=== PATIENT | male | born 1985 | race Caucasian/White ===

== ENCOUNTER 2018-01-29 23:42 | Emergency (ER) | payer OTHER ==
[2018-01-30] MEDS: CEPHALEXIN 250 MG CAPSULE. PO (00:11)
[2018-01-30] MEDS: SMZ/TMP 800/160MG TABLET. PO (00:11)
== END 2018-01-30 00:12 | disposition home or self-care (01) ==
LOC: ER 23:42
DX: L03.114 Cellulitis of left upper limb (principal); S40.862A Insect bite (nonvenomous) of left upper arm, initial encounter; W57.XXXA Bitten or stung by nonvenomous insect and other nonvenomous arthropods, initial encounter; Y93.89 Activity, other specified; Y99.8 Other external cause status; Y92.89 Other specified places as the place of occurrence of the external cause
CPT/HCPCS: 99283

== ENCOUNTER 2018-01-30 20:35 | Emergency (ER) | payer OTHER | END 2018-01-30 20:40 | disposition left against medical advice (07) | LOC: ER 20:40 | DX: T14.8XXA Other injury of unspecified body region, initial encounter (principal); Z53.21 Procedure and treatment not carried out due to patient leaving prior to being seen by health care provider; W57.XXXA Bitten or stung by nonvenomous insect and other nonvenomous arthropods, initial encounter; Y93.89 Activity, other specified; Y99.8 Other external cause status; Y92.89 Other specified places as the place of occurrence of the external cause ==

== ENCOUNTER 2019-11-09 15:25 | Emergency (ER) | payer SELFPAY ==
[~2019-11-09] VITALS: Ht 188 cm; Wt 97.7 kg
[~2019-11-09 15:25] MED LIST: CEPH-264 PO; HYDR-3164 PO; SULF1TAB24 PO
[2019-11-09] MEDS: ONDANSETRON PF 4 MG/2 ML VIAL. IV ONE (15:52)
[2019-11-09] MEDS: IV NORMAL SALINE 1000ML BAG 1,000 ML IV ONE (15:53)
[2019-11-09 15:55] VITALS: BP 133/74
[2019-11-09 15:55] LABS: BASO % 0 % (0-3); EOS # 0.1 x10^3/uL (0.0-0.7); EOS % 1 % (0-3); HEMATOCRIT 49.3 % (39.0-53.0); HEMOGLOBIN 16.9 g/dL (13.0-17.5); LYMPH # 2.5 x10^3/uL (1.0-4.8); LYMPH % 22 % (24-48); MEAN CORPUSCULAR HEMOGLOBIN 31 pg (25-35); MEAN CORPUSCULAR HGB CONC 34 g/dL (31-37); MEAN CORPUSCULAR VOLUME 90 fL (79-100); MONO # 0.8 x10^3/uL (0.0-1.1); MONO % 7 % (0-9); NEUT # 8.1 x10^3/uL (1.8-7.7); NEUT % 70 % (31-73); PLATELET COUNT 328 x10^3/uL (140-400); RED CELL DISTRIBUTION WIDTH 13.1 % (11.5-14.5); WHITE BLOOD COUNT 11.7 x10^3/uL (4.0-11.0)
[2019-11-09 16:03] LABS: CALCIUM 9.7 mg/dL (8.5-10.1); CREATININE 1.2 mg/dL (0.7-1.3); GFR 68.9
[2019-11-09 16:10] LABS: ALBUMIN 4.3 g/dL (3.4-5.0); DIRECT BILIRUBIN 0.1 mg/dL (0.0-0.2); TOTAL BILIRUBIN 0.6 mg/dL (0.2-1.0); TOTAL PROTEIN 7.7 g/dL (6.4-8.2)
--- NOTE | 2019-11-09 16:16 | PHYS DOC ---
Past Medical History Past Medical History: No Pertinent History Past Surgical History: No Surgical History Smoking Status: Current Every Day Smoker Alcohol Use: Occasionally Drug Use: None Social History Narrative: OXYCONTIN Adult General Chief Complaint Chief Complaint: NAUSEA/VOMITING/DIARRHA HPI HPI 33-year-old male presenting with nausea and vomiting that started today about a few hours ago. He denies any pain. His vomitus is nonbilious and nonbloody. location gi tract. duration intermittent. no alleviating factors. ROS neg for cp, soa, fevers. Negative for vision changes. All other ROS is negative unless otherwise noted. ED course: 33-year-old male presenting the emergency department today with nausea and vomiting over the past few hours. He denies any abdominal pain. Vital signs unremarkable on arrival. Patient given IV fluids. Patient left AMA prior to workup. Emergency room staff explained to the patient his risk of and disability prior to leaving. He demonstrated medical decision-making capacity. He is to return for any worsening symptoms. Review of Systems Review of Systems All other review of systems is negative unless otherwise noted in history of present illness. Current Medications Current Medications Current Medications Medications (Trade) Dose Ordered Sig/Abel Start Time Stop Time Status Last Admin Dose Admin Info (CONTRAST GIVEN -- Rx MONITORING) 1 each PRN DAILY PRN 11/09/19 16:30 11/09/19 16:47 DC Iohexol (Omnipaque 300 Mg/ml) 75 ml 1X ONCE 11/09/19 16:30 11/09/19 16:31 DC Metoclopramide HCl (Reglan Vial) 10 mg 1X ONCE 11/09/19 16:30 11/09/19 16:31 DC Ondansetron HCl (Zofran) 4 mg 1X ONCE 11/09/19 15:45 11/09/19 15:47 DC 11/09/19 15:52 4 MG Sodium Chloride 1,000 ml @ 1,000 mls/hr Q1H ONCE 11/09/19 15:45 11/09/19 16:44 DC 11/09/19 15:53 1,000 MLS/HR Allergies Allergies Allergies Coded Allergies Type Severity Reaction Last Updated Verified No Known Drug Allergies 05/08/15 No Physical Exam Physical Exam SEE ABOVE. Constitutional: Well developed, well nourished, no acute distress, non-toxic appearance. [] HENT: Normocephalic, atraumatic, bilateral external ears normal, oropharynx moist, no oral exudates, nose normal. [] Eyes: PERRLA, EOMI, conjunctiva normal, no discharge. [] Neck: Normal range of motion, no tenderness, supple, no stridor. [] Cardiovascular:Heart rate regular rhythm, no murmur [] Lungs & Thorax: Bilateral breath sounds clear to auscultation [] Abdomen: Bowel sounds normal, soft, no tenderness, no masses, no pulsatile masses. No rebound tenderness or guarding. Skin: Warm, dry, no erythema, no rash. [] Back: No tenderness, no CVA tenderness. [] Extremities: No tenderness, no cyanosis, no clubbing, ROM intact, no edema. [] Neurologic: Alert and oriented X 3, normal motor function, normal sensory function, no focal deficits noted. [] Psychologic: Affect normal, judgement normal, mood normal. [] Current Patient Data Vital Signs Vital Signs Date Time Temp Pulse Resp B/P (MAP) Pulse Ox O2 Delivery O2 Flow Rate FiO2 11/09/19 15:55 98.2 83 24 133/74 (93) 99 Room Air 98.2 Lab Values Laboratory Tests Test 11/09/19 15:45 White Blood Count 11.7 x10^3/uL (4.0-11.0) H Red Blood Count 5.50 x10^6/uL (4.30-5.70) Hemoglobin 16.9 g/dL (13.0-17.5) Hematocrit 49.3 % (39.0-53.0) Mean Corpuscular Volume 90 fL (79-100) Mean Corpuscular Hemoglobin 31 pg (25-35) Mean Corpuscular Hemoglobin Concent 34 g/dL (31-37) Red Cell Distribution Width 13.1 % (11.5-14.5) Platelet Count 328 x10^3/uL (140-400) Neutrophils (%) (Auto) 70 % (31-73) Lymphocytes (%) (Auto) 22 % (24-48) L Monocytes (%) (Auto) 7 % (0-9) Eosinophils (%) (Auto) 1 % (0-3) Basophils (%) (Auto) 0 % (0-3) Neutrophils # (Auto) 8.1 x10^3/uL (1.8-7.7) H Lymphocytes # (Auto) 2.5 x10^3/uL (1.0-4.8) Monocytes # (Auto) 0.8 x10^3/uL (0.0-1.1) Eosinophils # (Auto) 0.1 x10^3/uL (0.0-0.7) Basophils # (Auto) 0.0 x10^3/uL (0.0-0.2) Sodium Level 143 mmol/L (136-145) Potassium Level 4.0 mmol/L (3.5-5.1) Chloride Level 103 mmol/L (98-107) Carbon Dioxide Level 24 mmol/L (21-32) Anion Gap 16 (6-14) H Blood Urea Nitrogen 15 mg/dL (8-26) Creatinine 1.2 mg/dL (0.7-1.3) Estimated GFR (Cockcroft-Gault) 68.9 Glucose Level 134 mg/dL (70-99) H Calcium Level 9.7 mg/dL (8.5-10.1) Total Bilirubin 0.6 mg/dL (0.2-1.0) Direct Bilirubin 0.1 mg/dL (0.0-0.2) Aspartate Amino Transferase (AST) 21 U/L (15-37) Alanine Aminotransferase (ALT) 34 U/L (16-63) Alkaline Phosphatase 62 U/L (46-116) Total Protein 7.7 g/dL (6.4-8.2) Albumin 4.3 g/dL (3.4-5.0) Lipase 167 U/L (73-393) Laboratory Tests 11/09/19 15:45 Laboratory Tests 11/09/19 15:45 EKG EKG [] Radiology/Procedures Radiology/Procedures [] Course & Med Decision Making Course & Med Decision Making Pertinent Labs and Imaging studies reviewed. (See chart for details) [] Dragon Disclaimer Dragon Disclaimer This electronic medical record was generated, in whole or in part, using a voice recognition dictation system. Departure Departure Impression: Primary Impression: Nausea and vomiting Disposition: AGAINST MEDICAL ADVICE Condition: GUARDED Referrals: NO PCP (PCP) JOSE CARLOS LAMB MD Nov 09, 2019 16:16
[2019-11-09] MEDS ORDERED: CONTRAST GIVEN. MC PRN (16:30)
[2019-11-09] MEDS ORDERED: METOCLOPRAMIDE HCL 10 MG/2 ML VIAL. IVP ONE (16:30)
[2019-11-09] MEDS ORDERED: IOHEXOL 300 MG/ML 100ML VIAL. IV ONE (16:30)
[2019-11-10] MEDS ORDERED: ONDA4TAB12 PO (12:25)
== END 2019-11-09 16:47 | disposition left against medical advice (07) ==
LOC: ER 15:25
DX: R11.2 Nausea with vomiting, unspecified (principal); F17.200 Nicotine dependence, unspecified, uncomplicated
CPT/HCPCS: 36415; 80048; 80076; 83690; 85025; 96361; 96374; 99283; J2405; J7030

== ENCOUNTER 2019-11-09 21:38 | Observation (INO) | payer SELFPAY ==
[~2019-11-09] VITALS: Ht 188 cm; Wt 94.1 kg
--- NOTE | 2019-11-09 22:31 | PHYS DOC ---
Past Medical History Past Medical History: No Pertinent History Past Surgical History: No Surgical History Smoking Status: Current Every Day Smoker Alcohol Use: Occasionally Drug Use: None Adult General Chief Complaint Chief Complaint: ANXIETY/PANIC ATTACK HPI HPI 33-year-old male presents to the emergency room with complaints of nausea vomiting started today. He denies any precipitating factors. He does have some abdominal discomfort and cramping. His vomit is nonbilious and nonbloody. He denies any fever. Does complain of some diarrhea. Nothing makes his symptoms worse, nothing makes his symptoms better. Patient was seen in the emergency department today and left AGAINST MEDICAL ADVICE because he became anxious. Laboratory studies were done in the emergency department today white blood cell count 11.7, hemoglobin 16.9 platelets 328, metabolic profile unremarkable. No imaging was performed. Review of Systems Review of Systems Constitutional: Denies fever or chills [] Respiratory: Denies cough or shortness of breath [] Cardiovascular: No additional information not addressed in HPI [] GI: + abdominal pain, nausea, vomiting, diarrhea [] Musculoskeletal: Denies back pain or joint pain [] Neurologic: Denies headache, focal weakness or sensory changes [] All other systems were reviewed and found to be within normal limits, except as documented in this note. Current Medications Current Medications Current Medications Medications (Trade) Dose Ordered Sig/Abel Start Time Stop Time Status Last Admin Dose Admin Dicyclomine HCl (Bentyl) 20 mg 1X ONCE 11/09/19 23:00 11/09/19 23:01 DC 11/09/19 23:09 20 MG Ondansetron HCl (Zofran) 4 mg PRN Q8HRS PRN 11/10/19 00:00 11/10/19 23:59 Sodium Chloride 1,000 ml @ 100 mls/hr Q10H 11/10/19 00:00 11/10/19 00:01 DC Allergies Allergies Allergies Coded Allergies Type Severity Reaction Last Updated Verified No Known Drug Allergies 05/08/15 No Physical Exam Physical Exam Constitutional: Well developed, well nourished, no acute distress, non-toxic appearance. [] HENT: Normocephalic, atraumatic, bilateral external ears normal, oropharynx moist, no oral exudates, nose normal. [] Eyes: PERRLA, EOMI, conjunctiva normal, no discharge. [] Cardiovascular:Heart rate regular rhythm, no murmur [] Lungs & Thorax: Bilateral breath sounds clear to auscultation [] Abdomen: Bowel sounds normal, soft, generalized tenderness, no masses, no pulsatile masses. [] Skin: Warm, dry, no erythema, no rash. [] Extremities: No tenderness, no edema. [] Neurologic: Alert and oriented X 3, no focal deficits noted. [] Psychologic: Affect normal, judgement normal, mood normal. [] Current Patient Data Vital Signs Vital Signs Date Time Temp Pulse Resp B/P (MAP) Pulse Ox O2 Delivery O2 Flow Rate FiO2 11/09/19 23:46 80 20 140/82 (101) 100 Room Air 11/09/19 23:16 98.6 98.6 EKG EKG [] Radiology/Procedures Radiology/Procedures KUB negative for acute process[] Course & Med Decision Making Course & Med Decision Making Pertinent Labs and Imaging studies reviewed. (See chart for details) []33-year-old male presents to the emergency room with complaints of nausea vomiting started today. He denies any precipitating factors. He does have some abdominal discomfort and cramping. His vomit is nonbilious and nonbloody. He denies any fever. Does complain of some diarrhea. Nothing makes his symptoms worse, nothing makes his symptoms better. Patient was seen in the emergency department today and left AGAINST MEDICAL ADVICE because he became anxious. Laboratory studies were done in the emergency department today white blood cell count 11.7, hemoglobin 16.9 platelets 328, metabolic profile unremarkable. No imaging was performed. Patient labs reviewed from earlier today KUB ngative Despite antinausea medications and bentyl, patient with continued vomiting - unable to tolerate liquids Plan admit Dragon Disclaimer Dragon Disclaimer This electronic medical record was generated, in whole or in part, using a voice recognition dictation system. Departure Departure Impression: Primary Impression: Intractable nausea and vomiting Additional Impression: Acute anxiety Disposition: ADMITTED INPATIENT Admitting Physician: OMEGA Condition: STABLE Referrals: NO PCP (PCP) Problem Qualifiers KHADRA PEDRAZA MD Nov 09, 2019 22:31
[2019-11-09] MEDS ORDERED: DICYCLOMINE 20 MG/2 ML VIAL. IM ONE (23:00)
[2019-11-09] MEDS ORDERED: ONDANSETRON PF 4 MG/2 ML VIAL. IVP ONE ×2 (23:00→23:45)
[2019-11-10] MEDS ORDERED: IV NORMAL SALINE 1000ML BAG 1,000 ML IV SCH
[2019-11-10] MEDS ORDERED: ONDANSETRON PF 4 MG/2 ML VIAL. IV PRN
--- NOTE | 2019-11-10 00:24 | RAD ---
KUB INDICATION: Intractable nausea and vomiting. COMPARISON: None. FINDINGS: Nonobstructive bowel gas pattern. No free air. Limited view of the lower chest demonstrates no acute abnormality. No acute osseous abnormality. IMPRESSION: Nonobstructive bowel gas pattern. Electronically signed by: Gigi Dye MD (11/10/2019 12:21 AM) [id number]
[2019-11-10 00:25] VITALS: BP 146/91
--- NOTE | 2019-11-10 00:28 | NUR ---
The patient, JENIFFER MENDEZ, 33 y/o, M admitted by HENRY DOW III, DO, was given written information regarding hospital policies, unit procedures and contact persons. Valuables were checked and left with him.
[2019-11-10 03:00] VITALS: BP 134/90
[2019-11-10 07:00] VITALS: BP 134/71
[2019-11-10] MEDS ORDERED: FLU VAX QS 2019-20 (36MOS+)/PF 0.5 ML SYRINGE. VAX IM ONE (09:00)
--- NOTE | 2019-11-10 09:27 | NUR ---
SW following. Discussed with RN, pt confided to night RN that he had been taking street oxycontin and has been withdrawing for some time as he has not been wanting to take it anymore. RN does not think PAT team needs to be called at this time. Discharge planners Jaky will follow up if need be.
[2019-11-10 11:00] VITALS: BP 130/78
[2019-11-10] MEDS ORDERED: ONDA4TAB12 PO (12:25)
--- NOTE | 2019-11-10 13:21 | NUR ---
Discharge Note: JENIFFER MENDEZ [facility] Discharge instructions and discharge home medications reviewed with Patient and a copy given. All questions have been answered and understanding verbalized. The following instructions and handouts were given: discharge instructions, new prescriptions, education and follow up recommendations. Discontinued lines and drains: Peripheral IV discontinued intact. Patient discharged to Home or Self Care with Self via Ambulated off unit by RN.
--- NOTE | 2019-11-10 16:01 | PDOC1 ---
History and Physical Date of Admission Date of Admission 11/10/2019 Identification/Chief Complaint Chief Complaint I was nauseous and vomiting Source Source: Patient History of Present Illness History of Present Illness Patient is a 33-year-old gentleman who was admitted through the emergency department with intractable nausea and vomiting. Apparently the patient is a habitual marijuana user and he had smoked the night previous to when his symptoms started. 24 hours prior to my visit with him he had eaten some Holley Asada for breakfast and his symptoms started shortly thereafter. Seems like he started having nausea and subsequently intractable vomiting. He came to the emergency department for evaluation, and his white blood cell count was mildly elevated nevertheless his differential was normal chemistry was normal as well with a mild elevation of the glucose which may have been reactive. The patient at the time of my evaluation was in no acute distress he was able to eat and drink and he was in no acute distress. No fever no chills no recent sick contacts and the meal was prepared by him this was not a restaurant related issue either. The patient at the time of my note denies any abdominal pain no vomiting no diarrhea no chest pain palpitations or shortness of breath. We discussed his marijuana use and the propensity to intractable nausea and vomiting that he has most likely as a consequence of use of marijuana on top of his probably food poisoning. Past Medical History Past Medical History Negative medical history Current Problem List Problem List Problems Medical Problems: (1) Acute anxiety Status: Acute (2) Intractable nausea and vomiting Status: Acute Current Medications Current Medications Current Medications Medications (Trade) Dose Ordered Sig/Abel Start Time Stop Time Status Last Admin Dose Admin Dicyclomine HCl (Bentyl) 20 mg 1X ONCE 11/09/19 23:00 11/09/19 23:01 DC 11/09/19 23:09 20 MG Influenza Virus Vaccine Quadrival (Afluria Quad 2019- (3yr Up) Syringe) 0.5 ml ONCE ONCE 11/10/19 09:00 11/10/19 09:01 DC 11/10/19 11:22 0.5 ML Ondansetron HCl (Zofran) 4 mg PRN Q8HRS PRN 11/10/19 00:00 11/10/19 13:26 DC 11/10/19 08:14 4 MG Sodium Chloride 1,000 ml @ 100 mls/hr Q10H 11/10/19 00:00 11/10/19 00:01 DC 11/10/19 00:36 100 MLS/HR Allergies Allergies Allergies Coded Allergies Type Severity Reaction Last Updated Verified No Known Drug Allergies 05/08/15 No ROS Review of System CONSTITUTIONAL: No fever or chills EYES: No recent changes SKIN: No rash or itching CARDIOVASCULAR: No chest pain, syncope, palpitations, or edema RESPIRATORY: No SOB or cough GASTROINTESTINAL: No nausea, vomiting or abdominal pain NEUROLOGICAL: No headaches or weakness ENDOCRINE: No cold or heat intolerance GENITOURINARY: No urgency or frequency of urination MUSCULOSKELETAL: No back pain or joint pain LYMPHATICS: No enlarged lymph nodes PSYCHIATRIC: No anxiety or depression Physical Exam Physical Exam GEN.: No apparent distress. Alert and oriented. HEENT: Head is normocephalic, atraumatic NECK: Supple. LUNGS: Clear to auscultation. HEART: RRR, S1, S2 present. Peripheral pulses intact ABDOMEN: Soft, nontender. Positive bowel sounds. EXTREMITIES: Without any cyanosis. NEUROLOGIC: Normal speech, normal tone PSYCHIATRIC: Normal affect, normal mood. SKIN: No ulcerations Vitals Vitals Vital Signs Date Time Temp Pulse Resp B/P (MAP) Pulse Ox O2 Delivery O2 Flow Rate FiO2 11/10/19 11:00 98.6 85 17 130/78 (95) 95 Room Air 98.6 VTE Prophylaxis Ordered VTE Prophylaxis Devices: Yes VTE Pharmacological Prophylaxi: No Assessment/Plan Assessment/Plan Intractable nausea and vomiting Reactive leukocytosis most likely versus hemoconcentration Moderate dehydration Marijuana use Plan Food challenge If patient does well after his meal he may be discharged Drug cessation counseling has been done DVT prophylaxis with MATT Sharp MD Nov 10, 2019 16:01
--- NOTE | 2019-11-10 16:05 | PDOC3 ---
Discharge Summary Visit Information Date of Admission: Nov 10, 2019 Date of Discharge: Nov 10, 2019 Admitting Diagnosis Comment: Intractable nausea and vomiting Marijuana abuse Final Diagnosis Problems Medical Problems: (1) marijuana abuse Status: Acute (2) Intractable nausea and vomiting Status: Acute Brief Hospital Course Allergies Allergies Coded Allergies Type Severity Reaction Last Updated Verified No Known Drug Allergies 05/08/15 No Vital Signs Vital Signs Date Time Temp Pulse Resp B/P (MAP) Pulse Ox O2 Delivery O2 Flow Rate FiO2 11/10/19 11:00 98.6 85 17 130/78 (95) 95 Room Air 98.6 Brief Hospital Course Mr. Bullard was admitted for the above-mentioned nausea vomiting elevated leukocytosis and most likely food poisoning from Holley Asada that he had prepared at home for himself. The patient tolerated his diet well and did not present further emetic episodes. He was given a prescription for Zofran and the signs and symptoms of alarm and when to seek medical attention were discussed with the patient as well as extensive counseling regarding the noxious effect of marijuana on his health. Patient had nausea understanding of all the instructions and he was in good spirits to be dismissed home Physical exam Lungs clear to auscultation bilaterally with good inspiratory effort CVS S1-S2 regular rhythm no murmurs gallops or rubs Abdomen soft nontender no rebound or guarding elicited Discharge Information Condition at Discharge: Improved Follow Up: Weeks (With primary care) Disposition/Orders: D/C to Home Scheduled PRN Ondansetron (Ondansetron Odt) 4 Mg Tab.rapdis, 1 TAB PO PRN Q6-8HRS PRN for NAUSEA, #16 Prescribed by: MATT MATA MD on 11/10/19 1225 MATT MATA MD Nov 10, 2019 16:05
== END 2019-11-10 13:25 | disposition home or self-care (01) ==
LOC: ER 21:38 → 5 SOUTH 23:53 → ER 11-10 00:23
PROVIDERS: ADMIT Internal Medicine; ATTEND Internal Medicine
DX: R11.2 Nausea with vomiting, unspecified (principal); F17.210 Nicotine dependence, cigarettes, uncomplicated; F41.9 Anxiety disorder, unspecified; F12.10 Cannabis abuse, uncomplicated; Z87.891 Personal history of nicotine dependence; D72.828 Other elevated white blood cell count; E86.0 Dehydration; Z23 Encounter for immunization
CPT/HCPCS: 74018; 90471; 90686; 96374; 96375; 96376; 99285; G0378; J0500; J2405; J7030; G0379

== ENCOUNTER 2020-02-23 12:21 | Emergency (ER) | payer SELFPAY ==
[~2020-02-23] VITALS: Ht 188 cm; Wt 104.5 kg
[~2020-02-23 12:21] MED LIST changes: +ONDA4TAB12 PO
[2020-02-23 13:43] LABS: BILIRUBIN,URINE NEGATIVE (NEG); CLARITY,URINE CLEAR; COLOR,URINE YELLOW; NITRITE,URINE NEGATIVE (NEG); PROTEIN,URINE 30 mg/dL (NEG-TRACE)
[2020-02-23 13:44] LABS: BASO % 0 % (0-3); EOS % 0 % (0-3); HEMATOCRIT 44.3 % (39.0-53.0); HEMOGLOBIN 15.7 g/dL (13.0-17.5); LYMPH # 1.1 x10^3/uL (1.0-4.8); LYMPH % 10 % (24-48); MEAN CORPUSCULAR HEMOGLOBIN 32 pg (25-35); MEAN CORPUSCULAR HGB CONC 36 g/dL (31-37); MEAN CORPUSCULAR VOLUME 89 fL (79-100); MONO # 0.6 x10^3/uL (0.0-1.1); MONO % 5 % (0-9); NEUT # 9.7 x10^3/uL (1.8-7.7); NEUT % 84 % (31-73); PLATELET COUNT 311 x10^3/uL (140-400); RED BLOOD COUNT 4.96 x10^6/uL (4.30-5.70); RED CELL DISTRIBUTION WIDTH 12.9 % (11.5-14.5); WHITE BLOOD COUNT 11.6 x10^3/uL (4.0-11.0)
[2020-02-23 13:59] LABS: SQUAMOUS EPITHELIAL CELL,UR FEW /LPF
[2020-02-23 14:00] LABS: AMORPHOUS SEDIMENT,UR PRESENT /HPF; BACTERIA,URINE 0 /HPF (0-FEW)
[2020-02-23 14:11] LABS: CALCIUM 9.2 mg/dL (8.5-10.1); CREATININE 1.3 mg/dL (0.7-1.3); GFR 62.5; POTASSIUM 3.3 mmol/L (3.5-5.1)
[2020-02-23 14:16] LABS: ALBUMIN 4.2 g/dL (3.4-5.0); ALBUMIN/GLOBULIN RATIO 1.3 (1.0-1.7); TOTAL BILIRUBIN 0.8 mg/dL (0.2-1.0); TOTAL PROTEIN 7.4 g/dL (6.4-8.2)
[2020-02-23] MEDS ORDERED: IV NORMAL SALINE 1000ML BAG 1,000 ML IV ONE (14:45)
[2020-02-23] MEDS ORDERED: HALOPERIDOL LACTATE 5 MG/ML VIAL. IVP ONE (15:00)
--- NOTE | 2020-02-23 15:57 | PHYS DOC ---
Past Medical History Past Medical History: No Pertinent History Past Surgical History: No Surgical History Smoking Status: Current Every Day Smoker Additional Information: 0.25 PPD Alcohol Use: Occasionally Drug Use: None General Adult EDM: Chief Complaint: NAUSEA/VOMITING/DIARRHA HPI: HPI: Patient is a 34 year old male with a history of marijuana use who presents with epigastric abdominal pain and nausea with vomiting. This is been going on all day. He states the pain is severe and he cannot keep anything down. He is in distress. He denies any fever. He has not had any diarrhea or constipation. He denies any URI symptoms. Pain feels crampy and sharp. Review of Systems: Review of Systems: General: Denies fever, chills, sweats, fatigue Eyes: Denies drainage, blurred vision, eye redness HENT: Denies rhinorrhea, sore throat, earache Respiratory: Denies cough, shortness of breath, wheezing Cardiac: Denies edema, palpitations, chest pain GI: Reports nausea, vomiting, abdominal pain MSK: Denies neck pain[] Skin: Denies rash, jaundice Neuro: Denies headache, dizziness Psychiatric: Denies SI/HI Heart Score: Risk Factors: Risk Factors: DM, Current or recent (<one month) smoker, HTN, HLP, family history of CAD, obesity. Risk Scores: Score 0 - 3: 2.5% MACE over next 6 weeks - Discharge Home Score 4 - 6: 20.3% MACE over next 6 weeks - Admit for Clinical Observation Score 7 - 10: 72.7% MACE over next 6 weeks - Early Invasive Strategies Current Medications: Current Medications Medications (Trade) Dose Ordered Sig/Abel Start Time Stop Time Status Last Admin Dose Admin Haloperidol Lactate (Haldol Inj) 5 mg 1X ONCE 02/23/20 15:00 02/23/20 15:01 DC 02/23/20 15:02 5 MG Sodium Chloride 1,000 ml @ 1,000 mls/hr 1X ONCE 02/23/20 14:45 02/23/20 15:44 DC 02/23/20 14:45 1,000 MLS/HR Allergies: Allergies: Allergies Coded Allergies Type Severity Reaction Last Updated Verified No Known Drug Allergies 05/08/15 No Physical Exam: PE: General: Awake, alert, distressed, anxious. Well Nourished, well hydrated. Cooperative HEENT: Atraumatic, EOMI, PERRL, airway patent, moist oral mucosa Neck: Supple, trachea midline Respiratory: CTA bilaterally, normal effort, no wheezing/crackles CV: RRR, no murmur, cap refill <2 GI: Soft, nondistended, diffuse tenderness, no masses MSK: No obvious deformities Skin: Warm, dry, intact Neuro: A&O x3, speech NL, sensory and motor grossly intact, no focal deficits Psych: Normal affect, normal mood, not suicidal or homicidal Current Patient Data: Labs: Laboratory Tests Test 02/23/20 13:10 02/23/20 13:24 Urine Collection Type Unknown Urine Color Yellow Urine Clarity Clear Urine pH 8.0 (<5.0-8.0) Urine Specific Causey >=1.030 (1.000-1.030) Urine Protein 30 mg/dL (NEG-TRACE) Urine Glucose (UA) Negative mg/dL (NEG) Urine Ketones (Stick) >=80 mg/dL (NEG) Urine Blood Negative (NEG) Urine Nitrite Negative (NEG) Urine Bilirubin Negative (NEG) Urine Urobilinogen Dipstick 1.0 mg/dL (0.2 mg/dL) Urine Leukocyte Esterase Negative (NEG) Urine RBC 6-10 /HPF (0-2) Urine WBC 5-10 /HPF (0-4) Urine Squamous Epithelial Cells Few /LPF Urine Amorphous Sediment Present /HPF Urine Bacteria 0 /HPF (0-FEW) Urine Mucus Marked /LPF White Blood Count 11.6 x10^3/uL (4.0-11.0) H Red Blood Count 4.96 x10^6/uL (4.30-5.70) Hemoglobin 15.7 g/dL (13.0-17.5) Hematocrit 44.3 % (39.0-53.0) Mean Corpuscular Volume 89 fL (79-100) Mean Corpuscular Hemoglobin 32 pg (25-35) Mean Corpuscular Hemoglobin Concent 36 g/dL (31-37) Red Cell Distribution Width 12.9 % (11.5-14.5) Platelet Count 311 x10^3/uL (140-400) Neutrophils (%) (Auto) 84 % (31-73) H Lymphocytes (%) (Auto) 10 % (24-48) L Monocytes (%) (Auto) 5 % (0-9) Eosinophils (%) (Auto) 0 % (0-3) Basophils (%) (Auto) 0 % (0-3) Neutrophils # (Auto) 9.7 x10^3/uL (1.8-7.7) H Lymphocytes # (Auto) 1.1 x10^3/uL (1.0-4.8) Monocytes # (Auto) 0.6 x10^3/uL (0.0-1.1) Eosinophils # (Auto) 0.0 x10^3/uL (0.0-0.7) Basophils # (Auto) 0.0 x10^3/uL (0.0-0.2) Sodium Level 139 mmol/L (136-145) Potassium Level 3.3 mmol/L (3.5-5.1) L Chloride Level 103 mmol/L (98-107) Carbon Dioxide Level 21 mmol/L (21-32) Anion Gap 15 (6-14) H Blood Urea Nitrogen 13 mg/dL (8-26) Creatinine 1.3 mg/dL (0.7-1.3) Estimated GFR (Cockcroft-Gault) 62.5 BUN/Creatinine Ratio 10 (6-20) Glucose Level 151 mg/dL (70-99) H Calcium Level 9.2 mg/dL (8.5-10.1) Total Bilirubin 0.8 mg/dL (0.2-1.0) Aspartate Amino Transferase (AST) 15 U/L (15-37) Alanine Aminotransferase (ALT) 30 U/L (16-63) Alkaline Phosphatase 58 U/L (46-116) Total Protein 7.4 g/dL (6.4-8.2) Albumin 4.2 g/dL (3.4-5.0) Albumin/Globulin Ratio 1.3 (1.0-1.7) Lipase 86 U/L (73-393) Laboratory Tests 02/23/20 13:24 Laboratory Tests 02/23/20 13:24 Vital Signs: Vital Signs Date Time Temp Pulse Resp B/P (MAP) Pulse Ox O2 Delivery O2 Flow Rate FiO2 02/23/20 12:51 98.4 59 20 142/80 (100) 100 Room Air 98.4 EKG: EKG: [] Radiology/Procedures: Radiology/Procedures: [] Course & Med Decision Making: Course & Med Decision Making Pertinent Labs and Imaging studies reviewed. (See chart for details) Patient is a 34-year-old with a history cyclic vomiting or daily marijuana use and presents to the Emergency Room complaining of abdominal pain, nausea, vomiting. This is similar to episodes they have had in the past. Patient was given fluids and symptomatic treatment. BMP and UA were ordered. On reevaluation, patient is feeling much better after Haldol and would like to go home. Patient's test results and vitals while in the ED were fully reviewed and discussed with the patient. Patient is stable and at this time does not need admission to the hospital. We have discussed strict return precautions and the importance of following up with their Primary Care Physician. Patient stated understanding and was given an opportunity to ask any questions. Patient is in agreement with plan. Yaniraon Disclaimer: Alexandra Disclaimer: This electronic medical record was generated, in whole or in part, using a voice recognition dictation system. Departure Departure Impression: Primary Impression: Cyclic vomiting syndrome Disposition: HOME, SELF-CARE Condition: GOOD Referrals: NO PCP (PCP) Patient Instructions: Cyclic Vomiting Syndrome Justicifation of Admission Dx: Justifications for Admission: Justification of Admission Dx: No JAXON LEVY MD Feb 23, 2020 15:57
[2020-02-23 16:07] VITALS: BP 140/64
== END 2020-02-23 16:33 | disposition home or self-care (01) ==
LOC: ER 12:21
DX: R11.15 Cyclical vomiting syndrome unrelated to migraine (principal); R10.13 Epigastric pain; F17.200 Nicotine dependence, unspecified, uncomplicated
CPT/HCPCS: 36415; 80053; 81001; 83690; 85025; 96361; 96374; 99283; J1630; J7030

== ENCOUNTER 2020-04-17 14:15 | Emergency (ER) | payer SELFPAY ==
[~2020-04-17] VITALS: Ht 188 cm; Wt 95.0 kg
--- NOTE | 2020-04-17 14:37 | PHYS DOC ---
Past Medical History Past Medical History: No Pertinent History Past Surgical History: No Surgical History Smoking Status: Current Every Day Smoker Alcohol Use: Occasionally Drug Use: None General Adult EDM: Chief Complaint: ABDOMINAL PAIN HPI: HPI: Patient is a 34 year old male who presented to ER today for evaluation of nausea vomiting, abdominal pain since waking up this morning. Patient has history of cyclic vomiting syndrome, he continues to smoke marijuana. Patient denies any fever, no cough, no chest pain. Patient denies being exposed to anybody who tested positive for COVID-19. Patient has been evaluated here multiple times for the same problem. Review of Systems: Review of Systems: Constitutional: Denies fever or chills. [] Eyes: Denies change in visual acuity. [] HENT: Denies nasal congestion or sore throat. [] Respiratory: Denies cough or shortness of breath. [] Cardiovascular: Denies chest pain or edema. [] GI: Positive for nausea vomiting, abdominal pain. No diarrhea. : Denies dysuria. [] Musculoskeletal: Denies back pain or joint pain. [] Integument: Denies rash. [] Neurologic: Denies headache, focal weakness or sensory changes. [] Endocrine: Denies polyuria or polydipsia. [] Lymphatic: Denies swollen glands. [] Psychiatric: Denies depression or anxiety. [] Heart Score: Risk Factors: Risk Factors: DM, Current or recent (<one month) smoker, HTN, HLP, family history of CAD, obesity. Risk Scores: Score 0 - 3: 2.5% MACE over next 6 weeks - Discharge Home Score 4 - 6: 20.3% MACE over next 6 weeks - Admit for Clinical Observation Score 7 - 10: 72.7% MACE over next 6 weeks - Early Invasive Strategies Current Medications: Current Medications Medications (Trade) Dose Ordered Sig/Abel Start Time Stop Time Status Last Admin Dose Admin Sodium Chloride 1,000 ml @ 1,000 mls/hr 1X ONCE 04/17/20 14:45 04/17/20 15:44 Allergies: Allergies: Allergies Coded Allergies Type Severity Reaction Last Updated Verified No Known Drug Allergies 05/08/15 No Physical Exam: PE: Constitutional: Well developed, well nourished, no acute distress, non-toxic appearance. [] HENT: Normocephalic, atraumatic, bilateral external ears normal, oropharynx moist, no oral exudates, nose normal. [] Eyes: PERRLA, EOMI, conjunctiva normal, no discharge. [] Neck: Normal range of motion, no tenderness, supple, no stridor. [] Cardiovascular:Heart rate regular rhythm, no murmur [] Lungs & Thorax: Bilateral breath sounds clear to auscultation [] Abdomen: Bowel sounds normal, soft, there is diffuse tenderness to palpation, no masses, no pulsatile masses. Skin: Warm, dry, no erythema, no rash. [] Back: No tenderness, no CVA tenderness. [] Extremities: No tenderness, no cyanosis, no clubbing, ROM intact, no edema. [] Neurologic: Alert and oriented X 3, normal motor function, normal sensory function, no focal deficits noted. [] Psychologic: Affect normal, judgement normal, mood normal. [] Current Patient Data: Labs: Laboratory Tests Test 04/17/20 14:59 04/17/20 15:01 Urine Collection Type Unknown Urine Color Yellow Urine Clarity Clear Urine pH 8.5 Urine Specific [place] >=1.030 Urine Protein 30 mg/dL Urine Glucose (UA) Negative mg/dL Urine Ketones (Stick) >=80 mg/dL Urine Blood Negative Urine Nitrite Negative Urine Bilirubin Negative Urine Urobilinogen Dipstick 0.2 mg/dL Urine Leukocyte Esterase Negative Urine RBC 1-2 /HPF Urine WBC Rare /HPF Urine Squamous Epithelial Cells Few /LPF Urine Bacteria 0 /HPF Urine Mucus Marked /LPF Urine Opiates Screen Neg Urine Methadone Screen Neg Urine Barbiturates Neg Urine Phencyclidine Screen Neg Urine Amphetamine/Methamphetamine Neg Urine Benzodiazepines Screen Neg Urine Cocaine Screen Neg Urine Cannabinoids Screen Pos Urine Ethyl Alcohol Neg White Blood Count 15.6 x10^3/uL Red Blood Count 5.26 x10^6/uL Hemoglobin 16.2 g/dL Hematocrit 47.2 % Mean Corpuscular Volume 90 fL Mean Corpuscular Hemoglobin 31 pg Mean Corpuscular Hemoglobin Concent 34 g/dL Red Cell Distribution Width 13.3 % Platelet Count 296 x10^3/uL Neutrophils (%) (Auto) 89 % Lymphocytes (%) (Auto) 7 % Monocytes (%) (Auto) 4 % Eosinophils (%) (Auto) 0 % Basophils (%) (Auto) 0 % Neutrophils # (Auto) 13.8 x10^3/uL Lymphocytes # (Auto) 1.0 x10^3/uL Monocytes # (Auto) 0.6 x10^3/uL Eosinophils # (Auto) 0.0 x10^3/uL Basophils # (Auto) 0.1 x10^3/uL Segmented Neutrophils % 87 % Lymphocytes % 10 % Monocytes % 3 % Toxic Granulation Slight Platelet Estimate Adequate Sodium Level 138 mmol/L Potassium Level 3.5 mmol/L Chloride Level 101 mmol/L Carbon Dioxide Level 23 mmol/L Anion Gap 14 Blood Urea Nitrogen 11 mg/dL Creatinine 1.1 mg/dL Estimated GFR (Cockcroft-Gault) 75.7 BUN/Creatinine Ratio 10 Glucose Level 127 mg/dL Calcium Level 9.9 mg/dL Total Bilirubin 0.9 mg/dL Aspartate Amino Transf (AST/SGOT) 17 U/L Alanine Aminotransferase (ALT/SGPT) 34 U/L Alkaline Phosphatase 58 U/L Total Protein 7.6 g/dL Albumin 4.2 g/dL Albumin/Globulin Ratio 1.2 Lipase 56 U/L Current Medications Medications (Trade) Dose Ordered Sig/Abel Route PRN Reason Start Time Stop Time Status Last Admin Dose Admin Sodium Chloride 1,000 ml @ 1,000 mls/hr 1X ONCE IV 04/17/20 14:45 04/17/20 15:44 DC 04/17/20 15:04 Metoclopramide HCl (Reglan Vial) 10 mg 1X ONCE IVP 04/17/20 14:45 04/17/20 14:46 DC 04/17/20 15:04 Diphenhydramine HCl (Benadryl) 50 mg 1X ONCE IVP 04/17/20 14:45 04/17/20 14:46 DC 04/17/20 15:04 Sodium Chloride 1,000 ml @ 1,000 mls/hr 1X ONCE IV 04/17/20 15:30 04/17/20 16:29 DC 04/17/20 15:30 Iohexol (Omnipaque 300 Mg/ml) 75 ml 1X ONCE IV 04/17/20 16:15 04/17/20 16:16 DC Info (CONTRAST GIVEN -- Rx MONITORING) 1 each PRN DAILY PRN MC SEE COMMENTS 04/17/20 16:15 04/19/20 16:14 Ondansetron HCl (Zofran) 8 mg 1X ONCE IVP 04/17/20 16:45 9/1/20 16:46 DC 04/17/20 16:53 Haloperidol Lactate (Haldol Inj) 5 mg 1X ONCE IVP 04/17/20 16:45 04/17/20 16:46 DC 04/17/20 16:53 Ketorolac Tromethamine (Toradol 30mg Vial) 30 mg 1X ONCE IVP 04/17/20 17:30 04/17/20 17:33 DC 04/17/20 17:54 EKG: EKG: [] Radiology/Procedures: Radiology/Procedures: [][facility] [address] [place] [address] IMAGING REPORT Signed PATIENT: JADYN ESCOBEDO ACCOUNT: [id number] : 09/17/1948 LOCATION: ER AGE: 71 SEX: M EXAM STATUS: REG ER ORD. PHYSICIAN: CESAR DANIELS DO REASON: HAD A SYNCOPE OUTSIDE, FELL DOWN ON GROUND PROCEDURE: CT HEAD AND CERVICAL SPINE WO Exam: CT head and cervical spine INDICATION: Syncope outside, fell on ground TECHNIQUE: Sequential axial images through the head and cervical spine were obtained without the administration of IV contrast. Comparisons: 06/08/2019 FINDINGS: Head: No focal parenchymal lesion or hemorrhage is identified. There is no midline shift or sulcal effacement. Patchy hypodensity in the periventricular white matter. 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 No acute vascular territory infarction is identified. Esquivel-white distinction is preserved. The ventricular system is within normal limits without compression hydrocephalus. The basal cisterns are well maintained. The visualized portions of the paranasal sinuses and mastoid air cells are well-pneumatized. No acute fractures. Cervical spine: There is straightening of cervical spine which may positional. Anterior flowing bridging osteophytosis is noted throughout cervical spine. Vertebral body heights are well-maintained. Fracture to the cervical spine is not identified. Mild bilateral facet arthropathy greatest at C2-C3 and C3-C4 on the left. Visualized soft tissues are unremarkable. IMPRESSION: 1. No acute intracranial abnormality. 2. Negative CT C-spine for acute traumatic injury. Exposure: One or more of the following in the visualized dose reduction techniques were utilized for this examination: 1. Automated exposure control 2. Adjustment of the MA and/or KV according to patient size Use of iterative of reconstructive technique Electronically signed by: Zhao Finney MD (04/17/2020 5:11 PM) [id number] DICTATED and SIGNED BY: ZHAO FINNEY MD DATE: 04/17/20 1711 Course & Med Decision Making: Course & Med Decision Making Pertinent Labs and Imaging studies reviewed. (See chart for details) Patient is a 34-year-old male who presented to ER today for evaluation of nausea vomiting abdominal pain. Patient has cyclical vomiting syndrome, continues to smoke marijuana. Patient work-up in ER did not find any problem, CT scan abdomen pelvis did not show any acute problem patient will be discharged home. Dress Code Disclaimer: Dress Code Disclaimer: This electronic medical record was generated, in whole or in part, using a voice recognition dictation system. Departure Departure Impression: Primary Impression: Cyclic vomiting syndrome Disposition: HOME, SELF-CARE Condition: IMPROVED Referrals: NO PCP (PCP) PLEASE FOLLOW UP WITH YOUR FAMILY DOCTOR THIS WEEK Patient Instructions: Cyclic Vomiting Syndrome Additional Instructions: Thank you for visiting our Emergency Department. We appreciate you trusting us with your care. If any additional problems come up don't hesitate to return to visit us. Please follow up with your primary care provider so they can plan additional care if needed and know about the problem that you had. If symptoms worsen come back to the Emergency Department. Any concerning symptoms that start such as chest pain, shortness of air, weakness or numbness on one side of the body, running high fevers or any other concerning symptoms return to the ER. Scripts Metoclopramide Hcl (REGLAN) 10 Mg Tablet 1 TAB PO QID PRN for NAUSEA for 10 Days, #40 TAB 0 Refills before food and bedtime Prov: CESAR DANIELS DO 04/17/20 Justicifation of Admission Dx: Justifications for Admission: Justification of Admission Dx: No CESAR DANIELS DO Apr 17, 2020 14:37
[2020-04-17] MEDS ORDERED: IV NORMAL SALINE 1000ML BAG 1,000 ML IV ONE ×2 (14:45→15:30)
[2020-04-17] MEDS ORDERED: diphenhydrAMINE 50 MG/ML VIAL IVP ONE (14:45)
[2020-04-17] MEDS ORDERED: METOCLOPRAMIDE HCL 10 MG/2 ML VIAL. IVP ONE (14:45)
[2020-04-17 15:08] LABS: BILIRUBIN,URINE NEGATIVE (NEG); CLARITY,URINE CLEAR; COLOR,URINE YELLOW; NITRITE,URINE NEGATIVE (NEG); PH,URINE 8.5 (<5.0-8.0); PROTEIN,URINE 30 mg/dL (NEG-TRACE); UROBILINOGEN,URINE 0.2 mg/dL (0.2 mg/dL)
[2020-04-17 15:14] LABS: BASO # 0.1 x10^3/uL (0.0-0.2); BASO % 0 % (0-3); EOS % 0 % (0-3); HEMATOCRIT 47.2 % (39.0-53.0); HEMOGLOBIN 16.2 g/dL (13.0-17.5); LYMPH % 7 % (24-48); MEAN CORPUSCULAR HEMOGLOBIN 31 pg (25-35); MEAN CORPUSCULAR HGB CONC 34 g/dL (31-37); MEAN CORPUSCULAR VOLUME 90 fL (79-100); MONO # 0.6 x10^3/uL (0.0-1.1); MONO % 4 % (0-9); NEUT # 13.8 x10^3/uL (1.8-7.7); NEUT % 89 % (31-73); PLATELET COUNT 296 x10^3/uL (140-400); RED BLOOD COUNT 5.26 x10^6/uL (4.30-5.70); RED CELL DISTRIBUTION WIDTH 13.3 % (11.5-14.5); WHITE BLOOD COUNT 15.6 x10^3/uL (4.0-11.0)
[2020-04-17 15:14] LABS: AMPHETAMINE/METHAMPHETAMINE NEG (NEG); BARBITURATES NEG (NEG); BENZODIAZEPINES NEG (NEG); CANNABINOIDS POS (NEG); COCAINE NEG (NEG); METHADONE NEG (NEG); OPIATES NEG (NEG); PHENCYCLIDINE NEG (NEG)
[2020-04-17 15:19] LABS: SQUAMOUS EPITHELIAL CELL,UR FEW /LPF
[2020-04-17 15:21] LABS: BACTERIA,URINE 0 /HPF (0-FEW); WBC,URINE RARE /HPF (0-4)
[2020-04-17 15:26] LABS: CALCIUM 9.9 mg/dL (8.5-10.1); CREATININE 1.1 mg/dL (0.7-1.3); GFR 75.7; POTASSIUM 3.5 mmol/L (3.5-5.1)
[2020-04-17 15:31] LABS: ALBUMIN 4.2 g/dL (3.4-5.0); ALBUMIN/GLOBULIN RATIO 1.2 (1.0-1.7); TOTAL BILIRUBIN 0.9 mg/dL (0.2-1.0); TOTAL PROTEIN 7.6 g/dL (6.4-8.2)
[2020-04-17 16:00] LABS: % LYMPHS 10 % (24-48); % MONOS 3 % (0-10); % SEGS 87 % (35-66)
[2020-04-17 16:03] LABS: PLT ESTIMATE ADEQUATE (ADEQUATE); TOXIC GRANULATION SLIGHT
[2020-04-17] MEDS ORDERED: CONTRAST GIVEN. MC PRN (16:15)
[2020-04-17] MEDS ORDERED: IOHEXOL 300 MG/ML 100ML VIAL. IV ONE (16:15)
[2020-04-17] MEDS ORDERED: HALOPERIDOL LACTATE 5 MG/ML VIAL. IVP ONE (16:45)
[2020-04-17] MEDS ORDERED: ONDANSETRON PF 4 MG/2 ML VIAL. IVP ONE (16:45)
--- NOTE | 2020-04-17 16:45 | RAD ---
Exam: CT of abdomen and pelvis with contrast INDICATION: Abdominal pain TECHNIQUE: Sequential axial images through the abdomen and pelvis obtained following the administration of 75 mL of Omni 300 IV contrast. Sagittal and coronal reformatted images were reconstructed from the axial data and reviewed. Comparisons: None FINDINGS: Heart size is normal. No pericardial effusion. Visualized lung bases are clear. No pleural effusion. Liver, spleen, pancreas, gallbladder and adrenals are unremarkable. No perinephric inflammation or hydronephrosis. No renal or ureteral calculi are identified. Bladder is decompressed not well evaluated. Prostate is not enlarged. Large and small bowel are unremarkable. Appendix is normal. No free intra-abdominal air or fluid. No obstruction. Abdominal aorta has a normal course and caliber. Abdominal vasculature is patent. No enlarged abdominal lymph nodes are identified. No suspicious osseous lesions or acute fractures. IMPRESSION: No acute process identified in the abdomen or pelvis. Exposure: One or more of the following in the visualized dose reduction techniques were utilized for this examination: 1. Automated exposure control 2. Adjustment of the MA and/or KV according to patient size 3. Use of iterative of reconstructive technique Electronically signed by: Zhao Menon MD (04/17/2020 4:42 PM) [id number]
[2020-04-17 17:30] VITALS: BP 117/64
[2020-04-17] MEDS ORDERED: KETOROLAC 30 MG/ML VIAL. IVP ONE (17:30)
[2020-04-17] MEDS ORDERED: METO10TA81 PO (18:07)
== END 2020-04-17 18:18 | disposition home or self-care (01) ==
LOC: ER 14:15
DX: R11.15 Cyclical vomiting syndrome unrelated to migraine (principal); F17.200 Nicotine dependence, unspecified, uncomplicated
CPT/HCPCS: 36415; 74177; 80053; 80307; 81001; 83690; 85007; 85025; 96361; 96374; 96375; 99285; J1200; J1630; J1885; J2405; J2765; J7030; Q9967

== ENCOUNTER 2020-06-20 13:16 | Emergency (ER) | payer SELFPAY ==
[~2020-06-20] VITALS: Ht 188 cm; Wt 91.5 kg
[~2020-06-20 13:16] MED LIST changes: +METO10TA81 PO
[2020-06-20 14:06] LABS: BILIRUBIN,URINE NEGATIVE (NEG); CLARITY,URINE CLEAR; COLOR,URINE AMBER; NITRITE,URINE NEGATIVE (NEG); PH,URINE 8.5 (<5.0-8.0); PROTEIN,URINE 100 mg/dL (NEG-TRACE); UROBILINOGEN,URINE 0.2 mg/dL (0.2 mg/dL)
[2020-06-20 14:20] LABS: RBC,URINE OCC /HPF (0-2); WBC,URINE RARE /HPF (0-4)
[2020-06-20 14:23] LABS: BACTERIA,URINE 0 /HPF (0-FEW)
[2020-06-20] MEDS ORDERED: IV NORMAL SALINE 1000ML BAG 1,000 ML IV ONE ×2 (14:45→20:45)
[2020-06-20 14:56] LABS: BARBITURATES NEG (NEG); BENZODIAZEPINES NEG (NEG); CANNABINOIDS POS (NEG); COCAINE POS (NEG); METHADONE NEG (NEG); OPIATES NEG (NEG); PHENCYCLIDINE NEG (NEG)
[2020-06-20 14:59] LABS: AMPHETAMINE/METHAMPHETAMINE NEG (NEG)
[2020-06-20] MEDS ORDERED: ONDANSETRON PF 4 MG/2 ML VIAL. IVP ONE ×2 (15:00→15:30)
[2020-06-20] MEDS ORDERED: fentaNYL PF VIAL 100 MCG/2 ML VIAL IVP ONE ×2 (15:00→16:00)
[2020-06-20 15:01] LABS: BASO # 0.1 x10^3/uL (0.0-0.2); BASO % 0 % (0-3); EOS % 0 % (0-3); HEMATOCRIT 46.4 % (39.0-53.0); HEMOGLOBIN 16.1 g/dL (13.0-17.5); LYMPH # 0.9 x10^3/uL (1.0-4.8); LYMPH % 6 % (24-48); MEAN CORPUSCULAR HEMOGLOBIN 31 pg (25-35); MEAN CORPUSCULAR HGB CONC 35 g/dL (31-37); MEAN CORPUSCULAR VOLUME 89 fL (79-100); MONO # 0.9 x10^3/uL (0.0-1.1); MONO % 6 % (0-9); NEUT # 14.4 x10^3/uL (1.8-7.7); NEUT % 88 % (31-73); PLATELET COUNT 294 x10^3/uL (140-400); RED BLOOD COUNT 5.21 x10^6/uL (4.30-5.70); WHITE BLOOD COUNT 16.3 x10^3/uL (4.0-11.0)
[2020-06-20 15:08] LABS: CALCIUM 10.4 mg/dL (8.5-10.1); CREATININE 1.2 mg/dL (0.7-1.3); GFR 68.5; POTASSIUM 3.4 mmol/L (3.5-5.1)
[2020-06-20 15:10] LABS: PROTHROMBIN TIME PATIENT 12.7 SEC (11.7-14.0)
[2020-06-20 15:14] LABS: ALBUMIN 4.5 g/dL (3.4-5.0); ALBUMIN/GLOBULIN RATIO 1.5 (1.0-1.7); TOTAL PROTEIN 7.6 g/dL (6.4-8.2)
[2020-06-20] MEDS ORDERED: IOHEXOL 300 MG/ML 100ML VIAL. IV ONE ×2 (15:15)
[2020-06-20 15:21] LABS: % BANDS 5 % (0-9); % LYMPHS 10 % (24-48); % MONOS 3 % (0-10); % SEGS 82 % (35-66)
[2020-06-20 15:22] LABS: PLT ESTIMATE ADEQUATE (ADEQUATE); TOXIC GRANULATION SLIGHT
[2020-06-20] MEDS ORDERED: CONTRAST GIVEN. MC PRN (15:30)
--- NOTE | 2020-06-20 15:35 | PHYS DOC ---
Past Medical History Past Medical History: No Pertinent History (AGUSTIN MALIK FOOD VENDOR) Past Surgical History: No Surgical History (AGUSTIN MALIK APRN) Smoking Status: Current Every Day Smoker Alcohol Use: Occasionally Drug Use: None (AGUSTIN MALIK APRN) General Adult EDM: Chief Complaint: ABDOMINAL PAIN HPI: HPI: Patient is a 34 year old male who presents with today around 1300 patient states he began having generalized abdominal sharp cramping type pain. He rates the pain a 10 out of 10. Patient is very anxious and moving all over the bed. Patient denies fever, diarrhea, constipation, urinary symptoms, back pain, headache, dizziness, cough, chest pain, shortness of air. Denies past medical history or taking any medications before coming. (AGUSTIN MALIK FOOD VENDOR) Review of Systems: Review of Systems: Constitutional: Denies fever or chills. [] Eyes: Denies change in visual acuity. [] HENT: Denies nasal congestion or sore throat. [] Respiratory: Denies cough or shortness of breath. [] Cardiovascular: Denies chest pain or edema. [] GI: + abdominal pain, +nausea, +vomiting, denies bloody stools or diarrhea. [] : Denies dysuria. [] Musculoskeletal: Denies back pain or joint pain. [] Integument: Denies rash. [] Neurologic: Denies headache, focal weakness or sensory changes. [] Endocrine: Denies polyuria or polydipsia. [] Lymphatic: Denies swollen glands. [] Psychiatric: Denies depression or anxiety. [] (AGUSTIN MALIK FOOD VENDOR) Heart Score: Risk Factors: Risk Factors: DM, Current or recent (<one month) smoker, HTN, HLP, family history of CAD, obesity. Risk Scores: Score 0 - 3: 2.5% MACE over next 6 weeks - Discharge Home Score 4 - 6: 20.3% MACE over next 6 weeks - Admit for Clinical Observation Score 7 - 10: 72.7% MACE over next 6 weeks - Early Invasive Strategies (AGUSTIN MALIK FOOD VENDOR) Current Medications: Current Medications Medications (Trade) Dose Ordered Sig/Abel Start Time Stop Time Status Last Admin Dose Admin Fentanyl Citrate (Fentanyl 2ml Vial) 50 mcg 1X ONCE 06/20/20 15:00 06/20/20 15:01 DC 06/20/20 14:56 50 MCG Info (CONTRAST GIVEN -- Rx MONITORING) 1 each PRN DAILY PRN 06/20/20 15:30 06/22/20 15:29 Iohexol (Omnipaque 300 Mg/ml) 75 ml 1X ONCE 06/20/20 15:15 06/20/20 15:16 DC Ondansetron HCl (Zofran) 4 mg 1X ONCE 06/20/20 15:00 06/20/20 15:01 DC 06/20/20 15:00 4 MG Sodium Chloride 1,000 ml @ 1,000 mls/hr 1X ONCE 06/20/20 14:45 06/20/20 15:44 06/20/20 14:52 1,000 MLS/HR (AGUSTIN MALIK APRN) Allergies: Allergies: Allergies Coded Allergies Type Severity Reaction Last Updated Verified No Known Drug Allergies 05/08/15 No (AGUSTIN MALIK APRN) Physical Exam: PE: Constitutional: Well developed, well nourished, no acute distress, non-toxic a ppearance. [] HENT: Normocephalic, atraumatic, bilateral external ears normal, oropharynx moist, no oral exudates, nose normal. [] Eyes: PERRLA, EOMI, conjunctiva normal, no discharge. [] Neck: Normal range of motion, no tenderness, supple, no stridor. [] Cardiovascular:Heart rate regular rhythm, no murmur [] Lungs & Thorax: Bilateral breath sounds clear to auscultation [] Abdomen: Bowel sounds normal, soft, umbilical tenderness, no masses, no pulsatile masses. [] Skin: Warm, dry, no erythema, no rash. [] Back: No tenderness, no CVA tenderness. [] Extremities: No tenderness, no cyanosis, no clubbing, ROM intact, no edema. [] Neurologic: Alert and oriented X 3, normal motor function, normal sensory function, no focal deficits noted. [] Psychologic: Affect normal, judgement normal, mood normal. [] (AGUSTIN MALIK APRN) Current Patient Data: Labs: Laboratory Tests Test 06/20/20 13:50 06/20/20 14:37 06/20/20 14:45 Urine Collection Type Unknown Urine Color Sue Urine Clarity Clear Urine pH 8.5 (<5.0-8.0) Urine Specific [place] >=1.030 (1.000-1.030) Urine Protein 100 mg/dL (NEG-TRACE) Urine Glucose (UA) Negative mg/dL (NEG) Urine Ketones (Stick) >=80 mg/dL (NEG) Urine Blood Negative (NEG) Urine Nitrite Negative (NEG) Urine Bilirubin Negative (NEG) Urine Urobilinogen Dipstick 0.2 mg/dL (0.2 mg/dL) Urine Leukocyte Esterase Trace (NEG) Urine RBC Occ /HPF (0-2) Urine WBC Rare /HPF (0-4) Urine Squamous Epithelial Cells Occ /LPF Urine Bacteria 0 /HPF (0-FEW) Urine Mucus Marked /LPF Urine Opiates Screen Neg (NEG) Urine Methadone Screen Neg (NEG) Urine Barbiturates Neg (NEG) Urine Phencyclidine Screen Neg (NEG) Urine Amphetamine/Methamphetamine Neg (NEG) Urine Benzodiazepines Screen Neg (NEG) Urine Cocaine Screen Pos (NEG) Urine Cannabinoids Screen Pos (NEG) Urine Ethyl Alcohol Neg (NEG) Sodium Level 137 mmol/L (136-145) Potassium Level 3.4 mmol/L (3.5-5.1) L Chloride Level 99 mmol/L (98-107) Carbon Dioxide Level 19 mmol/L (21-32) L Anion Gap 19 (6-14) H Blood Urea Nitrogen 12 mg/dL (8-26) Creatinine 1.2 mg/dL (0.7-1.3) Estimated GFR (Cockcroft-Gault) 68.5 BUN/Creatinine Ratio 10 (6-20) Glucose Level 127 mg/dL (70-99) H Calcium Level 10.4 mg/dL (8.5-10.1) H Total Bilirubin 1.0 mg/dL (0.2-1.0) Aspartate Amino Transferase (AST) 20 U/L (15-37) Alanine Aminotransferase (ALT) 34 U/L (16-63) Alkaline Phosphatase 58 U/L (46-116) Total Protein 7.6 g/dL (6.4-8.2) Albumin 4.5 g/dL (3.4-5.0) Albumin/Globulin Ratio 1.5 (1.0-1.7) Lipase 70 U/L (73-393) L White Blood Count 16.3 x10^3/uL (4.0-11.0) H Red Blood Count 5.21 x10^6/uL (4.30-5.70) Hemoglobin 16.1 g/dL (13.0-17.5) Hematocrit 46.4 % (39.0-53.0) Mean Corpuscular Volume 89 fL (79-100) Mean Corpuscular Hemoglobin 31 pg (25-35) Mean Corpuscular Hemoglobin Concent 35 g/dL (31-37) Red Cell Distribution Width 13.0 % (11.5-14.5) Platelet Count 294 x10^3/uL (140-400) Neutrophils (%) (Auto) 88 % (31-73) H Lymphocytes (%) (Auto) 6 % (24-48) L Monocytes (%) (Auto) 6 % (0-9) Eosinophils (%) (Auto) 0 % (0-3) Basophils (%) (Auto) 0 % (0-3) Neutrophils # (Auto) 14.4 x10^3/uL (1.8-7.7) H Lymphocytes # (Auto) 0.9 x10^3/uL (1.0-4.8) L Monocytes # (Auto) 0.9 x10^3/uL (0.0-1.1) Eosinophils # (Auto) 0.0 x10^3/uL (0.0-0.7) Basophils # (Auto) 0.1 x10^3/uL (0.0-0.2) Segmented Neutrophils % 82 % (35-66) H Band Neutrophils % 5 % (0-9) Lymphocytes % 10 % (24-48) L Monocytes % 3 % (0-10) Toxic Granulation Slight Platelet Estimate Adequate (ADEQUATE) Prothrombin Time 12.7 SEC (11.7-14.0) Prothrombin Time INR 1.0 (0.8-1.1) Laboratory Tests 06/20/20 14:45 Laboratory Tests 06/20/20 14:37 Vital Signs: Vital Signs Date Time Temp Pulse Resp B/P (MAP) Pulse Ox O2 Delivery O2 Flow Rate FiO2 06/20/20 14:56 19 99 (AGUSTIN MALIK APRN) EKG: EKG: [] (AGUSTIN MALIK APRN) Radiology/Procedures: Radiology/Procedures: [] Impression: [facility] [address] [place] [address] IMAGING REPORT Signed PATIENT: JENIFFER MENDEZ ACCOUNT: [id number] : 1985 LOCATION: ER AGE: 34 SEX: M EXAM STATUS: REG ER ORD. PHYSICIAN: AGUSTIN MALIK APRN REASON: abd pain, vomiting PROCEDURE: CT ABD PELV W/ IV CONTRST ONLY Examination: CT of the abdomen pelvis with IV contrast HISTORY: History of abdominal pain, vomiting COMPARISON: None available TECHNIQUE: Axial CT images of the abdomen pelvis were performed with IV contrast. Coronal and sagittal reformats performed Exposure: One or more of the following individualized dose reduction techniques were utilized for this examination: 1. Automated exposure control 2. Adjustment of the mA and/or kV according to patient size 3. Use of iterative reconstruction technique FINDINGS: The bibasilar lungs are clear. No evidence of free air identified in the abdomen. The liver, spleen, adrenals grossly appears unremarkable. The gallbladder is mildly distended. The stomach is mildly distended with visualized pancreas grossly appears unremarkable. The small bowel is nondilated There is mild diffuse thickened appearance of the wall of the colon throughout with minimal surrounding fat stranding likely mild diffuse colitis The appendix is normal. The bilateral kidneys enhance symmetrically. No evidence of lytic bony destructive lesion. IMPRESSION: 1. Mild diffuse thickened appearance of the wall of the colon throughout likely mild diffuse colitis. Electronically signed by: Alejandro Ni MD (06/20/2020 7:24 PM) [id number] DICTATED and SIGNED BY: ALEJANDRO NI MD DATE: 06/20/201923 (AGUSTIN MALIK APRN) Course & Med Decision Making: Course & Med Decision Making Pertinent Labs and Imaging studies reviewed. (See chart for details) See HPI. Abdomen is soft but tender at umbilical area. Skin pink warm and dry. Afebrile. Speaks in full complete sentences. Ambulatory with a steady gait. Urinalysis is positive for cocaine and marijuana. Patient's white blood cell count is elevated at 16.5. Afebrile. Patient is refusing CT abdomen pelvis and states this is his usual problem with his smoking of marijuana. He states this is usual pain and there is nothing else wrong with him he does not need a CT of his abdomen pelvis. Patient is educated that I cannot properly diagnose him and there could be something emergently and acutely wrong with him that could result in severe illness or . States his understanding. Patient has had 2 doses of fentanyl, 2 doses of Zofran, liter of fluids. Dr. Bucio told me it was okay to give 5 mg of Haldol IV. Patient states after Haldol was given his abdominal pain has subsided. He states he is still slightly nauseated. Patient now agrees to a CT of his abdomen pelvis. IMPRESSION: 1. Mild diffuse thickened appearance of the wall of the colon throughout likely mild diffuse colitis. Patient was able to keep down Sprite. Patient will be given 2 L of normal saline total. He will be sent home on Cipro and Flagyl. He is to follow-up with primary care provider. [] (AGUSTIN MALIK APRN) Dragon Disclaimer: Dragon Disclaimer: This electronic medical record was generated, in whole or in part, using a voice recognition dictation system. (AGUSTIN MALIK APRN) Departure Departure Impression: Primary Impression: Colitis Additional Impressions: Nausea & vomiting Qualified Codes: R11.2 - Nausea with vomiting, unspecified Cocaine abuse Marijuana abuse Disposition: HOME SELF CARE/HOMELESS Condition: STABLE Referrals: NO PCP (PCP) Patient Instructions: Colitis, Nausea and Vomiting, [id number] Additional Instructions: Take medications as prescribed and with food. Follow-up with primary care provider. Drink plenty of fluids. Scripts Ondansetron (ONDANSETRON ODT) 4 Mg Tab.rapdis 1 TAB PO PRN Q6-8HRS, #20 TAB Prov: AGUSTIN MALIK APRN 06/20/20 Metronidazole (FLAGYL) 500 Mg Tablet 1 TAB PO BID, #14 TAB Prov: AGUSTIN MALIK APRN 06/20/20 Ciprofloxacin Hcl (CIPRO) 500 Mg Tablet 1 TAB PO BID for 10 Days, #20 TAB 0 Refills Prov: AGUSTIN MALIK APRN 06/20/20 Attending Signature Attending Signature I have reviewed the non-physician practitioner's documentation, personally taken the patient's history, performed an exam and agree with the physical findings, clinical impression, and management plan. (KERWIN BUCIO DO) Attending Signature I have participated in the care of this patient and I have reviewed and agree with all pertinent clinical information above including history, exam, and recommendations. (AGUSTIN MALIK APRN) AGUSTIN MALIK APRN Jun 20, 2020 15:35 KERWIN BUCIO DO Jun 20, 2020 16:18
[2020-06-20] MEDS ORDERED: PROCHLORPERAZINE 10 MG/2 ML VIAL. IV ONE (16:00)
[2020-06-20] MEDS ORDERED: HALOPERIDOL LACTATE 5 MG/ML VIAL. IVP ONE (17:15)
--- NOTE | 2020-06-20 19:27 | RAD ---
Examination: CT of the abdomen pelvis with IV contrast HISTORY: History of abdominal pain, vomiting COMPARISON: None available TECHNIQUE: Axial CT images of the abdomen pelvis were performed with IV contrast. Coronal and sagittal reformats performed Exposure: One or more of the following individualized dose reduction techniques were utilized for this examination: 1. Automated exposure control 2. Adjustment of the mA and/or kV according to patient size 3. Use of iterative reconstruction technique FINDINGS: The bibasilar lungs are clear. No evidence of free air identified in the abdomen. The liver, spleen, adrenals grossly appears unremarkable. The gallbladder is mildly distended. The stomach is mildly distended with visualized pancreas grossly appears unremarkable. The small bowel is nondilated There is mild diffuse thickened appearance of the wall of the colon throughout with minimal surrounding fat stranding likely mild diffuse colitis The appendix is normal. The bilateral kidneys enhance symmetrically. No evidence of lytic bony destructive lesion. IMPRESSION: 1. Mild diffuse thickened appearance of the wall of the colon throughout likely mild diffuse colitis. Electronically signed by: Alejandro Ni MD (06/20/2020 7:24 PM) [id number]
[2020-06-20] MEDS ORDERED: IOHEXOL 300 MG/ML 100ML VIAL. ONE (20:29)
[2020-06-20] MEDS ORDERED: CIPR500T94 PO (20:37)
[2020-06-20] MEDS ORDERED: METR500T PO (20:37)
[2020-06-20] MEDS ORDERED: ONDA4TAB12 PO (20:37)
[2020-06-20 22:20] VITALS: BP 120/63
== END 2020-06-20 22:30 | disposition home or self-care (01) ==
LOC: ER 13:16
DX: K52.9 Noninfective gastroenteritis and colitis, unspecified (principal); R11.2 Nausea with vomiting, unspecified; R10.84 Generalized abdominal pain; F14.10 Cocaine abuse, uncomplicated; F12.10 Cannabis abuse, uncomplicated; F17.200 Nicotine dependence, unspecified, uncomplicated
CPT/HCPCS: 36415; 74177; 80053; 80307; 81001; 83690; 85007; 85025; 85610; 87086; 96361; 96374; 96375; 96376; 99285; J0780; J1630; J2405; J3010; J7030; Q9967